=== PATIENT | female | born 1955 | race African-American/Black ===

== ENCOUNTER 2022-12-23 17:52 | Inpatient (IN) | payer MEDICARE, OTHER ==
[~2022-12-23 17:52] MED LIST: Iopamidol-370 76% 500 ML MDV (1 ML CHARGE) ONE
[2022-12-23] MEDS ORDERED: Morphine 4 MG/ML VIAL ONE ×2 (18:28→20:44)
[2022-12-23] MEDS ORDERED: Ondansetron PF 4 MG/2 ML Vial ONE (18:29)
[2022-12-23 19:23] LABS: Bacteria/HPF 2+ HPF (None Seen); Bilirubin 1+ (Negative); Blood, Urine Negative (Negative); CAUTI Indications for Culture Pelvic or flank pain; Clarity Clear (Clear); Glucose, Urine (Dipstick) Normal (Negative); Ketone, Urine 150 mg/dL (Negative); Leukocyte Negative Leu/uL (Negative); Nitrite Negative (Negative); Protein, Urine (Dipstick) 20 mg/dL (Neg-Trace); RBC/HPF 0-3 HPF (0-3); Specific Gravity, Urine 1.017 (1.002-1.036); Urobilinogen 3 mg/dL (Less than 2); WBC/HPF 0-3 HPF (0-3); pH, Urine 5.5 (5.0-9.0)
[2022-12-23 19:27] LABS: #Monocytes 0.7 thou/uL (0.11-0.59); #Neutrophils 5.5 thou/uL (1.40-6.50); %Basophils 0.3 % (0.0-1.0); %Lymphocytes 12.8 % (21.0-51.0); %Monocytes 9.4 % (0.0-10.0); %Neutrophils 76.5 % (42.0-75.0); Hematocrit 32.2 % (36.0-47.0); Hemoglobin 10.1 g/dL (12.0-16.0); Mean Corpuscular HGB CONC 31.4 g/dL (32.0-36.0); Mean Corpuscular Hemoglobin 34.5 pg (27.0-31.0); Mean Corpuscular Volume 109.9 fl (78.0-98.0); Mean Platelet Volume 8.8 fL (7.4-10.4); Platelet Count 178 10x3/uL (130-400); RBC Distribution Width 13.5 % (11.5-14.5); Red Blood Cell (RBC) Count 2.93 mill/uL (4.20-5.40); White Blood Cell (WBC) Count 7.2 10x3/uL (4.8-10.8)
[2022-12-23 19:32] LABS: Urine Culture Reflex No No
[2022-12-23 19:55] LABS: ALT (SGPT) 30 U/L (8-55); AST (SGOT) 55 U/L (5-34); Albumin 4.1 g/dL (3.4-4.8); Alkaline Phosphatase 117 U/L (40-110); Anion Gap 31 mmol/L (10-20); BUN (Urea Nitrogen) 13 mg/dL (9.8-20.1); Bilirubin, Total 0.5 mg/dL (0.2-1.2); Calc. Creatinine Clearance 0 mL/min (70-130); Calcium 9.6 mg/dL (7.8-10.44); Chloride 94 mmol/L (98-107); Estimated GFR 45; Globulin 3.6 g/dL (2.4-3.5); Glucose 92 mg/dL (80-115); Potassium 4.5 mmol/L (3.5-5.1); Protein, Total 7.7 g/dL (5.8-8.1); Sodium 128 mmol/L (136-145)
[2022-12-23 20:02] LABS: Carbon Dioxide 8 mmol/L (23-31)
[2022-12-23 20:05] LABS: Alcohol Less than 10.0 mg/dL (Less than 10); Salicylate Less than 8.0 mg/dL (15.0-30.0)
[2022-12-23 20:09] LABS: Lipase 2072 U/L (8-78)
[2022-12-23 21:49] LABS: Base Excess -15.3 mEq/L (-2.0 to +3.0); Calcium, Ionized (venous) 1.13 mmol/L (1.16-1.32); Chloride (VBG) 96 mmol/L (98-106); Hematocrit-VBG 33 % (36.0-47.0); Hemoglobin (Hb) 11.3 g/dL (11.7-16.1); Potassium (VBG) 4.61 mmol/L (3.70-5.30); Sodium 131.9 mmol/L (133-146)
[2022-12-23 21:51] LABS: Actual Bicarbonate (HCO3v) 9.9 mEq/L (22-28)
[2022-12-23] MEDS ORDERED: Sodium Bicarb 50 MEQ/50 ML VIAL ONE (21:57)
[2022-12-23] MEDS ORDERED: Famotidine/PF 20 mg/2ml Vial ONE (21:57)
[2022-12-23] MEDS ORDERED: Mag-Al 1200 mg/1200 mg/30 ML UDCUP ONE (21:57)
[2022-12-23 22:07] LABS: Anion Gap 31 mmol/L (10-20); BUN (Urea Nitrogen) 13 mg/dL (9.8-20.1); Calc. Creatinine Clearance 0 mL/min (70-130); Calcium 9.3 mg/dL (7.8-10.44); Chloride 97 mmol/L (98-107); Estimated GFR 45; Glucose 95 mg/dL (80-115); Potassium 4.6 mmol/L (3.5-5.1); Sodium 131 mmol/L (136-145); Triglycerides 41 mg/dL (Less than 150)
[2022-12-23 22:18] LABS: Carbon Dioxide 8 mmol/L (23-31)
[2022-12-23 22:55] LABS: Acetaminophen Less than 10 mcg/mL (10.0-30.0)
[2022-12-23] MEDS ORDERED: Acetaminophen 325 MG TAB PO PRN (23:00)
[2022-12-23 23:09] VITALS: BMI 31.1
[2022-12-23] MEDS ORDERED: Lorazepam 2 MG/ML VIAL IM PRN (23:44)
[2022-12-23] MEDS ORDERED: Lorazepam 1 MG TAB PO PRN (23:44)
[2022-12-23 23:45] LABS: Magnesium 1.3 mg/dL (1.6-2.6)
[2022-12-23] MEDS ORDERED: Electrolyte Replacement Protocol 1 EACH FS SCH (23:45)
[2022-12-23] MEDS: Thiamine HCl 200 MG/2 ML VIAL SLOW IVP SCH (23:54)
[2022-12-23] MEDS: Ondansetron PF 4 MG/2 ML Vial IVP PRN (23:54)
[2022-12-23] MEDS ORDERED: Folic Acid 1 MG TAB PO SCH (23:59)
[2022-12-23] MEDS ORDERED: Multivit, Therapeutic 1 TAB PO SCH (23:59)
[2022-12-24] MEDS: Sodium Bicarbonate 150 MEQ in Dextrose 5% in Water 1,000 ML IV SCH ×4 (00:15→20:10)
[2022-12-24] MEDS ORDERED: Magnesium Sulfate In Water 4 GM in Premix Bag 1 BAG IVPB SCH (02:00)
[2022-12-24] MEDS: Morphine 4 MG/ML VIAL SLOW IVP PRN ×2 (03:07→12:44)
[2022-12-24] MEDS: Ondansetron ODT 4 MG TAB PO PRN ×2 (06:29→17:18)
[2022-12-24 07:25] LABS: Phosphorus 2.9 mg/dL (2.3-4.7)
[2022-12-24 07:33] LABS: ALT (SGPT) 29 U/L (8-55); AST (SGOT) 68 U/L (5-34); Albumin 3.4 g/dL (3.4-4.8); Alkaline Phosphatase 122 U/L (40-110); Anion Gap 22 mmol/L (10-20); BUN (Urea Nitrogen) 14 mg/dL (9.8-20.1); Bilirubin, Total 0.6 mg/dL (0.2-1.2); Calc. Creatinine Clearance 54 mL/min (70-130); Calcium 8.8 mg/dL (7.8-10.44); Carbon Dioxide 20 mmol/L (23-31); Chloride 96 mmol/L (98-107); Estimated GFR 42; Glucose 132 mg/dL (80-115); Magnesium 2.9 mg/dL (1.6-2.6); Potassium 3.9 mmol/L (3.5-5.1); Protein, Total 6.4 g/dL (5.8-8.1); Sodium 134 mmol/L (136-145)
[2022-12-24 08:05] LABS: #Monocytes 0.6 thou/uL (0.11-0.59); #Neutrophils 4.7 thou/uL (1.40-6.50); %Basophils 0.2 % (0.0-1.0); %Eosinophils 0.2 % (0.0-10.0); %Lymphocytes 11.5 % (21.0-51.0); %Monocytes 9.5 % (0.0-10.0); %Neutrophils 77.8 % (42.0-75.0); Mean Corpuscular HGB CONC 33.3 g/dL (32.0-36.0); Mean Platelet Volume 9.1 fL (7.4-10.4); Platelet Count 165 10x3/uL (130-400); RBC Distribution Width 13.5 % (11.5-14.5); Red Blood Cell (RBC) Count 2.65 mill/uL (4.20-5.40); White Blood Cell (WBC) Count 6.1 10x3/uL (4.8-10.8)
[2022-12-24 08:22] LABS: Mean Corpuscular Volume 101.9 fl (78.0-98.0)
[2022-12-24] MEDS: Multivit, Therapeutic 1 TAB PO SCH (08:55)
[2022-12-24] MEDS: Senokot S 8.6-50 MG TAB PO SCH ×2 (08:55→20:10)
[2022-12-24] MEDS: Folic Acid 1 MG TAB PO SCH (08:55)
[2022-12-24] MEDS: Polyethylene Glycol 3350 17 GM Packet PO SCH (08:55)
[2022-12-24] MEDS ORDERED: NIFEdipine XL 30 MG TAB PO SCH (13:30)
[2022-12-24] MEDS: Atorvastatin Calcium 20 MG TAB PO SCH (20:10)
[2022-12-24] MEDS ORDERED: Lorazepam 1 MG TAB PO PRN (23:44)
[2022-12-25] MEDS: Thiamine HCl 200 MG/2 ML VIAL SLOW IVP SCH ×2 (00:13→23:45)
[2022-12-25] MEDS: Sodium Bicarbonate 150 MEQ in Dextrose 5% in Water 1,000 ML IV SCH ×3 (03:40→21:36)
[2022-12-25 06:24] LABS: #Monocytes 0.5 thou/uL (0.11-0.59); #Neutrophils 4.2 thou/uL (1.40-6.50); %Basophils 0.2 % (0.0-1.0); %Eosinophils 0.4 % (0.0-10.0); %Monocytes 8.6 % (0.0-10.0); Hematocrit 27.5 % (36.0-47.0); Hemoglobin 9.3 g/dL (12.0-16.0); Mean Corpuscular HGB CONC 33.8 g/dL (32.0-36.0); Mean Corpuscular Hemoglobin 33.9 pg (27.0-31.0); Mean Corpuscular Volume 100.4 fl (78.0-98.0); Mean Platelet Volume 9.1 fL (7.4-10.4); Platelet Count 144 10x3/uL (130-400); Red Blood Cell (RBC) Count 2.74 mill/uL (4.20-5.40); White Blood Cell (WBC) Count 5.3 10x3/uL (4.8-10.8)
[2022-12-25 06:59] LABS: ALT (SGPT) 29 U/L (8-55); AST (SGOT) 49 U/L (5-34); Albumin 3.1 g/dL (3.4-4.8); Alkaline Phosphatase 120 U/L (40-110); Anion Gap 14 mmol/L (10-20); BUN (Urea Nitrogen) 9 mg/dL (9.8-20.1); Bilirubin, Total 0.5 mg/dL (0.2-1.2); Calc. Creatinine Clearance 82 mL/min (70-130); Calcium 8.5 mg/dL (7.8-10.44); Carbon Dioxide 36 mmol/L (23-31); Chloride 86 mmol/L (98-107); Estimated GFR 70; Globulin 3.1 g/dL (2.4-3.5); Glucose 137 mg/dL (80-115); Lipase 506 U/L (8-78); Magnesium 1.7 mg/dL (1.6-2.6); Potassium 3.1 mmol/L (3.5-5.1); Protein, Total 6.2 g/dL (5.8-8.1); Sodium 133 mmol/L (136-145)
[2022-12-25] MEDS ORDERED: Magnesium 2 GM/50 ML(in water) 2 GM in Premix Bag 1 BAG IVPB SCH (08:00)
[2022-12-25] MEDS ORDERED: Potassium Chloride 20 MEQ TAB PO SCH (08:00)
[2022-12-25] MEDS: Morphine 4 MG/ML VIAL SLOW IVP PRN ×2 (08:49→16:20)
[2022-12-25] MEDS: Ondansetron PF 4 MG/2 ML Vial IVP PRN (08:49)
[2022-12-25] MEDS: Multivit, Therapeutic 1 TAB PO SCH (08:52)
[2022-12-25] MEDS: Sertraline 100 MG TAB PO SCH (08:52)
[2022-12-25] MEDS: Senokot S 8.6-50 MG TAB PO SCH ×2 (08:52→21:36)
[2022-12-25] MEDS: Folic Acid 1 MG TAB PO SCH (08:52)
[2022-12-25] MEDS: Aspirin Chewable 81 MG TAB PO SCH (08:52)
[2022-12-25] MEDS: Polyethylene Glycol 3350 17 GM Packet PO SCH (08:53)
[2022-12-25] MEDS ORDERED: Spironolactone 25 MG TAB PO SCH (09:00)
[2022-12-25] MEDS: NIFEdipine XL 30 MG TAB PO SCH (09:02)
[2022-12-25] MEDS: Scopolamine 1.5 mg/72 hour Patch TD SCH (09:10)
[2022-12-25] MEDS: HYDROcodone/Acetaminophen 5/325 mg Tablet PO PRN ×2 (18:02→21:35)
[2022-12-25] MEDS: Atorvastatin Calcium 20 MG TAB PO SCH (21:35)
[2022-12-25] MEDS: Famotidine/PF 20 mg/2ml Vial SLOW IVP SCH (21:36)
[2022-12-25] MEDS ORDERED: Lorazepam 1 MG TAB PO PRN (23:44)
[2022-12-26] MEDS: HYDROcodone/Acetaminophen 5/325 mg Tablet PO PRN ×3 (03:14→15:45)
[2022-12-26] MEDS: Sodium Bicarbonate 150 MEQ in Dextrose 5% in Water 1,000 ML IV SCH (04:20)
[2022-12-26 05:55] LABS: #Monocytes 0.6 thou/uL (0.11-0.59); #Neutrophils 3.6 thou/uL (1.40-6.50); %Basophils 0.2 % (0.0-1.0); %Eosinophils 0.6 % (0.0-10.0); %Lymphocytes 11.1 % (21.0-51.0); %Monocytes 12.3 % (0.0-10.0); Hematocrit 27.4 % (36.0-47.0); Hemoglobin 9.4 g/dL (12.0-16.0); Mean Corpuscular HGB CONC 34.3 g/dL (32.0-36.0); Mean Corpuscular Hemoglobin 34.7 pg (27.0-31.0); Mean Corpuscular Volume 101.1 fl (78.0-98.0); Mean Platelet Volume 9.2 fL (7.4-10.4); Platelet Count 151 10x3/uL (130-400); RBC Distribution Width 12.9 % (11.5-14.5); Red Blood Cell (RBC) Count 2.71 mill/uL (4.20-5.40); White Blood Cell (WBC) Count 4.8 10x3/uL (4.8-10.8)
[2022-12-26 07:37] LABS: ALT (SGPT) 58 U/L (8-55); AST (SGOT) 108 U/L (5-34); Albumin 3.2 g/dL (3.4-4.8); Alkaline Phosphatase 229 U/L (40-110); Anion Gap 18 mmol/L (10-20); BUN (Urea Nitrogen) 6 mg/dL (9.8-20.1); Bilirubin, Total 0.5 mg/dL (0.2-1.2); Calc. Creatinine Clearance 88 mL/min (70-130); Calcium 8.7 mg/dL (7.8-10.44); Carbon Dioxide 34 mmol/L (23-31); Chloride 81 mmol/L (98-107); Estimated GFR 76; Globulin 3.1 g/dL (2.4-3.5); Glucose 160 mg/dL (80-115); Magnesium 1.6 mg/dL (1.6-2.6); Potassium 3.1 mmol/L (3.5-5.1); Protein, Total 6.3 g/dL (5.8-8.1); Sodium 130 mmol/L (136-145)
[2022-12-26] MEDS ORDERED: Magnesium 2 GM/50 ML(in water) 2 GM in Premix Bag 1 BAG IVPB SCH (08:30)
[2022-12-26] MEDS ORDERED: Potassium Chloride 20 MEQ TAB PO SCH (08:30)
[2022-12-26] MEDS: Aspirin Chewable 81 MG TAB PO SCH (08:46)
[2022-12-26] MEDS: Polyethylene Glycol 3350 17 GM Packet PO SCH (08:46)
[2022-12-26] MEDS: Senokot S 8.6-50 MG TAB PO SCH ×2 (08:46→22:02)
[2022-12-26] MEDS: Folic Acid 1 MG TAB PO SCH (08:47)
[2022-12-26] MEDS: Sertraline 100 MG TAB PO SCH (08:47)
[2022-12-26] MEDS: NIFEdipine XL 30 MG TAB PO SCH (08:47)
[2022-12-26] MEDS: Multivit, Therapeutic 1 TAB PO SCH (08:47)
[2022-12-26] MEDS: Thiamine 100 MG TAB PO SCH (08:48)
[2022-12-26] MEDS: Famotidine/PF 20 mg/2ml Vial SLOW IVP SCH ×2 (08:48→22:02)
[2022-12-26] MEDS: Scopolamine 1.5 mg/72 hour Patch TD SCH (08:48)
[2022-12-26] MEDS ORDERED: Furosemide 40 MG/4 ML VIAL SLOW IVP SCH (11:15)
[2022-12-26] MEDS: Ipratropium/Albuterol 3 ML NEB NEB PRN (11:57)
[2022-12-26] MEDS: Atorvastatin Calcium 20 MG TAB PO SCH (22:02)
[2022-12-26] MEDS ORDERED: Lorazepam 0.5 MG TAB PO PRN (23:44)
[2022-12-27 06:44] LABS: #Monocytes 0.6 thou/uL (0.11-0.59); #Neutrophils 3.5 thou/uL (1.40-6.50); %Basophils 0.2 % (0.0-1.0); %Eosinophils 0.6 % (0.0-10.0); %Lymphocytes 14.6 % (21.0-51.0); %Monocytes 11.7 % (0.0-10.0); %Neutrophils 72.1 % (42.0-75.0); Hematocrit 29.3 % (36.0-47.0); Hemoglobin 9.9 g/dL (12.0-16.0); Mean Corpuscular HGB CONC 33.8 g/dL (32.0-36.0); Mean Corpuscular Volume 100.7 fl (78.0-98.0); Mean Platelet Volume 8.6 fL (7.4-10.4); Platelet Count 164 10x3/uL (130-400); RBC Distribution Width 12.8 % (11.5-14.5); Red Blood Cell (RBC) Count 2.91 mill/uL (4.20-5.40); White Blood Cell (WBC) Count 4.8 10x3/uL (4.8-10.8)
[2022-12-27 07:27] LABS: ALT (SGPT) 44 U/L (8-55); AST (SGOT) 53 U/L (5-34); Albumin 3.1 g/dL (3.4-4.8); Alkaline Phosphatase 194 U/L (40-110); Anion Gap 13 mmol/L (10-20); BUN (Urea Nitrogen) 7 mg/dL (9.8-20.1); Bilirubin, Total 0.4 mg/dL (0.2-1.2); Calc. Creatinine Clearance 93 mL/min (70-130); Calcium 9.2 mg/dL (7.8-10.44); Carbon Dioxide 33 mmol/L (23-31); Chloride 86 mmol/L (98-107); Estimated GFR 81; Globulin 2.9 g/dL (2.4-3.5); Glucose 130 mg/dL (80-115); Lipase 309 U/L (8-78); Potassium 3.3 mmol/L (3.5-5.1); Sodium 129 mmol/L (136-145)
[2022-12-27] MEDS ORDERED: Potassium Chloride 20 MEQ TAB PO SCH (08:00)
[2022-12-27] MEDS: Famotidine/PF 20 mg/2ml Vial SLOW IVP SCH ×2 (09:02→20:59)
[2022-12-27] MEDS: Polyethylene Glycol 3350 17 GM Packet PO SCH (09:03)
[2022-12-27] MEDS: NIFEdipine XL 30 MG TAB PO SCH (09:03)
[2022-12-27] MEDS: Aspirin Chewable 81 MG TAB PO SCH (09:05)
[2022-12-27] MEDS: Folic Acid 1 MG TAB PO SCH (09:05)
[2022-12-27] MEDS: Senokot S 8.6-50 MG TAB PO SCH ×2 (09:05→20:58)
[2022-12-27] MEDS: Thiamine 100 MG TAB PO SCH (09:05)
[2022-12-27] MEDS: Multivit, Therapeutic 1 TAB PO SCH (09:05)
[2022-12-27] MEDS: Sertraline 100 MG TAB PO SCH (09:05)
[2022-12-27] MEDS: Scopolamine 1.5 mg/72 hour Patch TD SCH (09:16)
[2022-12-27] MEDS ORDERED: Furosemide 40 MG/4 ML VIAL SLOW IVP SCH (10:30)
[2022-12-27] MEDS: Ipratropium/Albuterol 3 ML NEB NEB PRN (11:38)
[2022-12-27] MEDS: chlordiazePOXIDE HCl 5 MG CAP PO SCH (20:58)
[2022-12-27] MEDS: Atorvastatin Calcium 20 MG TAB PO SCH (20:58)
[2022-12-28] MEDS ORDERED: NIFEdipine XL 30 MG TAB PO SCH (07:46)
[2022-12-28] MEDS: chlordiazePOXIDE HCl 5 MG CAP PO SCH ×2 (08:16→20:38)
[2022-12-28] MEDS: Folic Acid 1 MG TAB PO SCH (08:16)
[2022-12-28] MEDS: Multivit, Therapeutic 1 TAB PO SCH (08:17)
[2022-12-28] MEDS: Senokot S 8.6-50 MG TAB PO SCH ×2 (08:17→20:39)
[2022-12-28] MEDS: Sertraline 100 MG TAB PO SCH (08:17)
[2022-12-28] MEDS: Aspirin Chewable 81 MG TAB PO SCH (08:17)
[2022-12-28] MEDS: Polyethylene Glycol 3350 17 GM Packet PO SCH (08:18)
[2022-12-28] MEDS: NIFEdipine XL 60 MG TAB PO SCH (08:18)
[2022-12-28] MEDS: Famotidine/PF 20 mg/2ml Vial SLOW IVP SCH ×2 (08:18→20:39)
[2022-12-28] MEDS: Thiamine 100 MG TAB PO SCH (08:31)
[2022-12-28 09:41] LABS: ALT (SGPT) 34 U/L (8-55); AST (SGOT) 35 U/L (5-34); Albumin 3.4 g/dL (3.4-4.8); Alkaline Phosphatase 191 U/L (40-110); Anion Gap 12 mmol/L (10-20); BUN (Urea Nitrogen) 9 mg/dL (9.8-20.1); Bilirubin, Total 0.5 mg/dL (0.2-1.2); Calc. Creatinine Clearance 84 mL/min (70-130); Carbon Dioxide 29 mmol/L (23-31); Chloride 89 mmol/L (98-107); Estimated GFR 72; Globulin 3.3 g/dL (2.4-3.5); Glucose 162 mg/dL (80-115); Lipase 285 U/L (8-78); Potassium 3.3 mmol/L (3.5-5.1); Protein, Total 6.7 g/dL (5.8-8.1); Sodium 127 mmol/L (136-145)
[2022-12-28] MEDS ORDERED: Potassium Chloride 20 MEQ TAB PO SCH (14:00)
[2022-12-28] MEDS: Ipratropium/Albuterol 3 ML NEB NEB PRN (15:39)
[2022-12-28] MEDS: Atorvastatin Calcium 20 MG TAB PO SCH (20:39)
[2022-12-29 07:26] LABS: ALT (SGPT) 26 U/L (8-55); AST (SGOT) 28 U/L (5-34); Albumin 3.2 g/dL (3.4-4.8); Alkaline Phosphatase 159 U/L (40-110); Anion Gap 10 mmol/L (10-20); BUN (Urea Nitrogen) 11 mg/dL (9.8-20.1); Bilirubin, Total 0.4 mg/dL (0.2-1.2); Calc. Creatinine Clearance 88 mL/min (70-130); Calcium 10.2 mg/dL (7.8-10.44); Carbon Dioxide 26 mmol/L (23-31); Chloride 94 mmol/L (98-107); Estimated GFR 76; Glucose 124 mg/dL (80-115); Potassium 3.4 mmol/L (3.5-5.1); Protein, Total 6.2 g/dL (5.8-8.1); Sodium 127 mmol/L (136-145)
[2022-12-29] MEDS: Senokot S 8.6-50 MG TAB PO SCH ×2 (09:01→20:43)
[2022-12-29] MEDS: Aspirin Chewable 81 MG TAB PO SCH (09:02)
[2022-12-29] MEDS: Folic Acid 1 MG TAB PO SCH (09:02)
[2022-12-29] MEDS: Thiamine 100 MG TAB PO SCH (09:02)
[2022-12-29] MEDS: Sertraline 100 MG TAB PO SCH (09:03)
[2022-12-29] MEDS: Polyethylene Glycol 3350 17 GM Packet PO SCH (09:03)
[2022-12-29] MEDS: NIFEdipine XL 60 MG TAB PO SCH (09:03)
[2022-12-29] MEDS: Multivit, Therapeutic 1 TAB PO SCH (09:03)
[2022-12-29] MEDS: Sodium Chloride 1 GM TAB PO SCH ×3 (09:03→20:43)
[2022-12-29] MEDS: chlordiazePOXIDE HCl 5 MG CAP PO SCH ×2 (09:14→20:43)
[2022-12-29] MEDS: Famotidine/PF 20 mg/2ml Vial SLOW IVP SCH ×2 (09:15→20:43)
[2022-12-29] MEDS ORDERED: Potassium Chloride 20 MEQ TAB PO SCH (10:00)
[2022-12-29 19:45] VITALS: TEMP 98.4
[2022-12-29] MEDS: Atorvastatin Calcium 20 MG TAB PO SCH (20:43)
[2022-12-30 07:12] VITALS: BP 147/82
[2022-12-30 07:16] LABS: Anion Gap 13 mmol/L (10-20); BUN (Urea Nitrogen) 15 mg/dL (9.8-20.1); Calc. Creatinine Clearance 87 mL/min (70-130); Calcium 10.3 mg/dL (7.8-10.44); Carbon Dioxide 23 mmol/L (23-31); Chloride 99 mmol/L (98-107); Estimated GFR 75; Glucose 122 mg/dL (80-115); Potassium 3.6 mmol/L (3.5-5.1); Sodium 131 mmol/L (136-145)
[2022-12-30] MEDS: chlordiazePOXIDE HCl 5 MG CAP PO SCH (08:59)
[2022-12-30] MEDS: Folic Acid 1 MG TAB PO SCH (08:59)
[2022-12-30] MEDS: Sodium Chloride 1 GM TAB PO SCH (08:59)
[2022-12-30] MEDS: Sertraline 100 MG TAB PO SCH (08:59)
[2022-12-30] MEDS: Multivit, Therapeutic 1 TAB PO SCH (08:59)
[2022-12-30] MEDS: NIFEdipine XL 60 MG TAB PO SCH (08:59)
[2022-12-30] MEDS: Senokot S 8.6-50 MG TAB PO SCH (08:59)
[2022-12-30] MEDS: Thiamine 100 MG TAB PO SCH (08:59)
[2022-12-30] MEDS: Aspirin Chewable 81 MG TAB PO SCH (09:00)
[2022-12-30] MEDS: Polyethylene Glycol 3350 17 GM Packet PO SCH (09:00)
[2022-12-30] MEDS: Famotidine/PF 20 mg/2ml Vial SLOW IVP SCH (09:00)
== END 2022-12-30 10:41 | disposition home or self-care (01) | DRG 439 ==
LOC: ERS 17:52 → EDBD 17:52 → T4-B 22:21 → OBSVTOIN 23:02
PROVIDERS: ADMIT Internal Medicine; ATTEND Family Medicine
DX: K85.20 Alcohol induced acute pancreatitis without necrosis or infection (principal); E87.1 Hypo-osmolality and hyponatremia; E87.20 Acidosis, unspecified; N17.9 Acute kidney failure, unspecified; E83.42 Hypomagnesemia; F10.20 Alcohol dependence, uncomplicated; I10 Essential (primary) hypertension; Z96.642 Presence of left artificial hip joint; K86.0 Alcohol-induced chronic pancreatitis; F17.220 Nicotine dependence, chewing tobacco, uncomplicated; D64.9 Anemia, unspecified; E87.70 Fluid overload, unspecified; E87.6 Hypokalemia; E78.5 Hyperlipidemia, unspecified; K21.9 Gastro-esophageal reflux disease without esophagitis; Z88.8 Allergy status to other drugs, medicaments and biological substances; Z79.82 Long term (current) use of aspirin; Z79.899 Other long term (current) drug therapy; Z90.49 Acquired absence of other specified parts of digestive tract; Z82.49 Family history of ischemic heart disease and other diseases of the circulatory system; F32.A Depression, unspecified
CPT/HCPCS: 36415; 36416; 74177; 80048; 80053; 80307; 81001; 82010; 82805; 83605; 83690; 83735; 84100; 84478; 85025; 94640; 96374; 96375; 96376; J1940; J2270; J2405; J3411; J3475; J7070; J7620; Q0162; Q9967; S0028